=== PATIENT | male | born 1945 | race Caucasian/White ===

== ENCOUNTER 2022-05-16 18:09 | Outpatient (REF) | payer MEDICARE, SELFPAY ==
[2022-05-16 19:05] LABS: Influenza A PCR NEGATIVE (Negative); Influenza B PCR NEGATIVE (Negative); Resp Syncy Virus RNA Qual PCR NEGATIVE (Negative); SARS COV2 PCR INHOUSE NEGATIVE (Negative)
== END 2022-05-16 18:10 | disposition home or self-care (01) ==
LOC: HO.LNP 18:09
PROVIDERS: Visit Provider Internal Medicine
DX: Z20.822 Contact with and (suspected) exposure to COVID-19 (principal)
CPT/HCPCS: 0241U

== ENCOUNTER 2023-08-10 10:50 | Outpatient (AMB) | payer MEDICARE, SELFPAY ==
[2023-08-10 10:57] VITALS: BP 140/64; PULSE 72; O2SAT 96; BMI 36.2
--- NOTE | 2023-08-10 10:57 | MHC.OFFVIS ---
Intake Vital Signs 08/10/23 10:57 Height 5 ft 6 in Weight 224 lb BMI 36.2 BP 140/64 H Blood Pressure Location Lt brachial Position Sitting Pulse 72 Pulse Source Pulse Oximeter Pulse Oximetry (%) 96 Intake Visit Reasons: shortness of breath Assistant Professor Of Economics Required: No Stitch Welder: Stitch Welder offered & declined Allergies No Known Allergies Allergy (Verified 08/10/23 11:01) Medication List - Last Reconciled 08/10/23 by Hilary Grant LPN ON LICENSE OF [facility] Social History (Updated 08/10/23 @ 11:04 by Hilary Grant LPN) Patient Tobacco Use Status: Never used Tobacco Coding
--- NOTE | 2023-08-10 11:09 | MHC.OFFVIS ---
Intake Vital Signs 08/10/23 10:57 Height 5 ft 6 in Weight 224 lb BMI 36.2 BP 140/64 H Blood Pressure Location Lt brachial Position Sitting Pulse 72 Pulse Source Pulse Oximeter Pulse Oximetry (%) 96 Intake Visit Reasons: shortness of breath Family Helper Required: No Bow Making Machine Operator: Bow Making Machine Operator offered & declined Accompanied by: Self / Same As Patient Allergies No Known Allergies Allergy (Verified 08/10/23 11:01) Medication List - Last Reconciled 08/10/23 by Hilary Grant LPN amlodipine 10 mg PO DAILY carvedilol 12.5 mg PO BID doxazosin 4 mg PO DAILY hydralazine 50 mg PO BID metformin 1,000 mg PO DAILY valsartan-hydrochlorothiazide 320-25 mg 1 tab PO DAILY HPI shortness of breath HPI Details Arie is a pleasant 77 year old male, never smoker, with underlying HTN, DM and 1st degree AV block. He was referred by PCP for pulmonary evaluation for dyspnea. He reports testing positive to COVID 05/14, vaccinated multiple times and did not receive Paxlovid. Since then, he reports slowly resolving symptoms. He feels he is 75% improved. Prior to May, he was walking 5-6 miles per day with no respiratory symptoms and only recently started walking on a daily basis, but fatigues easily. He reports productive cough but attributes it to post nasal drip and uses a nasal spray PRN along with mucinex with good effect. Recent CXR revealed increased interstitial markings with question of fibrosis. He denies prior history of asthma. He denies any GERD symptoms. He reports possible asbestos exposure. He denies any pertinent family history. He reports intermittent BLE edema and denies orthopnea however sleeps on a recliner. FOR[facility]LY [facility], [facility] Social History (Updated 08/10/23 @ 11:04 by Hilary Grant LPN) Patient Tobacco Use Status: Never used Tobacco Smoked in Last 30 Days: No Review of Systems Const Denies chills, Denies excessive sweating, Denies fever(s), Denies headache(s) and Denies night sweats Eyes Denies dry eyes, Denies irritation and Denies itchy eyes ENT Reports Normal hearing present, Denies headache(s), Denies nasal congestion, Denies nasal discharge and Denies sore throat Card Denies chest pain, Denies chest pain at rest, Denies chest pain with activity, Denies claudication, Denies dyspnea on exertion, Denies orthopnea and Denies paroxysmal nocturnal dyspnea Resp Denies chest congestion, Denies excessive phlegm production, Denies pain on inspiration, Denies pain with cough, Denies dyspnea on exertion, Denies stridor and Denies wheezing Musc Denies myalgias Neuro Reports Normal hearing present and Denies headache(s) Endo Denies excessive sweating Marcio/Lymph Denies lymphadenopathy Aller/Immun Denies itchy eyes, Denies seasonal rhinorrhea and Denies wheezing Physical Exam Vital Signs: Last Vital Signs Pulse 72 08/10/23 10:57 BP 140/64 H 08/10/23 10:57 Pulse Ox 96 08/10/23 10:57 BMI result Body Mass Index 36.2 Const General: cooperative, healthy appearing, comfortable, no acute distress, well developed and alert Nutritional Appearance: obese Orientation/consciousness: patient oriented x3 Limitations: no limitations HEENT Head: Yes normal to inspection, Yes normocephalic and Yes atraumatic Ears: hearing grossly normal bilaterally and external ears normal Eyes General: appearance normal, both eyes and all related structures Eyelids: Yes eyelids normal Sclerae: sclerae normal EOM: EOMs intact bilaterally Neck Neck: Yes normal visual inspection and Yes no lymphadenopathy Lymphatic: no lymphadenopathy noted Chest Chest palpation & inspection: normal inspection of the chest Resp Other: inspiratory bibasilar crackles Effort & Inspection: normal respiratory effort, able to speak in complete sentences, no audible wheezes, no stridor, not tachypneic, no tripod positioning and no use of accessory muscles Cardio Jugular venous distension: no JVD Rate: regular rate Rhythm: regular rhythm Skin Other: warm, dry General skin exam: no rashes or lesions noted Neuro General: patient oriented x3 Cranial nerves: Yes Normal hearing present Cognition (Neuro): normal cognition Gait exam (Neuro): Normal gait present Extrem Other: 2+ pitting edema BLE Psych Appearance: grossly normal and well kempt Speech and movement: Normal speech and movement present and Clear speech present Affect: normal affect Attitude: cooperative Thought process: Normal thought process present Thought content: Normal thought content present Insight: Good insight present (Psych) Judgement: Good judgement present (Psych) Assessment & Plan Assessment & Plan (1) Dyspnea: Code(s): R06.00 - Dyspnea, unspecified (2) Cough: Code(s): R05.9 - Cough, unspecified (3) Abnormal chest xray: Code(s): R93.89 - Abnormal findings on diagnostic imaging of other specified body structures Plan Arie presents with slowly improving symptoms of dyspnea and cough since testing positive to COVID in May. He had a CXR within the last few weeks that questioned possible pulmonary fibrosis, with bibasilar crackles appreciated on exam. Will send for chest CT to further evaluate. Will also send for PFT to assess for any obstructive or restrictive defect contributing to dyspnea. He reports BLE, 2+ pitting edema BLE on exam, denies orthopnea and PND, will consider echo in the future. All questions were answered and patient is in agreement of plan. Will follow up to review results. Orders: Orders CT chest wo IV con Today R93.89 - Abnormal findings on diagnostic imaging of other specified body structures PFT pulmonary function test Today R05.9 - Cough, unspecified, R06.00 - Dyspnea, unspecified Coding Level of Care Code New Pt Level 4 (16872) Diagnoses Dyspnea R06.00 Cough R05.9 Abnormal chest xray R93.89
== END 2023-08-10 11:34 | disposition home or self-care (01) ==
PROVIDERS: PCP Nurse Practitioner Primary Care; Referring Provider Nurse Practitioner Primary Care; Visit Provider Nurse Practitioner Family
DX: R06.00 Dyspnea, unspecified (principal); R05.9 Cough, unspecified; R93.89 Abnormal findings on diagnostic imaging of other specified body structures
CPT/HCPCS: 99204

== ENCOUNTER → 2023-08-10 10:50 | Outpatient (BNVA) | payer MEDICARE, SELFPAY | PROVIDERS: PCP Nurse Practitioner Primary Care; Referring Provider Nurse Practitioner Primary Care; Visit Provider Nurse Practitioner Family | DX: R06.00 Dyspnea, unspecified (principal); R05.9 Cough, unspecified; R93.89 Abnormal findings on diagnostic imaging of other specified body structures | CPT/HCPCS: 99202 ==

== ENCOUNTER 2023-09-28 12:38 | Outpatient (REF) | payer MEDICARE, SELFPAY ==
--- NOTE | ~2023-09-28 | CT_ITS ---
EXAMINATION: CT CHEST WITHOUT CONTRAST CLINICAL INFORMATION: Questionable pulmonary fibrosis bibasilar crackles COMPARISON: None available. TECHNIQUE: Multidetector volumetric CT imaging of the chest was done. Axial MIP volume rendering provided. Sagittal and coronal reformatted images were obtained. This CT examination was performed using dose optimization techniques as appropriate, variously including the following: *Automated exposure control *Adjustment of mA and/or kV according to patient size (this includes techniques or standardized protocols for targeted exams where dose is matched to indication/reason for exam; i.e. extremities or head) *Use of iterative reconstruction technique DLP: 243 mGy-cm FINDINGS: SUPERVISOR STENO POOL: Unremarkable LUNGS: The lungs are clear with no evidence of inflammation or nodules. MEDIASTINUM: There is mild mediastinal lymphadenopathy with precarinal pretracheal lymph nodes measured 1.6 cm. There is no hilar lymphadenopathy. Aorta is not dilated. There is no pericardial effusion. CORONARY ARTERY CALCIFICATION: Heavily calcified coronary artery present. PLEURA: There is no pleural effusion. No pleural mass or thickening. AXILLA: No lymphadenopathy. UPPER ABDOMEN: There is questionable low-attenuation mass in the left lobe of the liver, correlate with IV enhanced CT scan, or ultrasound. This area measured 8.5 x 5.4 cm spleen is unremarkable. There is no pancreatic lesions. Calcifications seen in the lateral limb of left adrenal gland. OSSEOUS STRUCTURES: Unremarkable. CT/CT chest wo IV con IMPRESSION: 1. No evidence of pulmonary fibrosis. 2. Mild mediastinal lymphadenopathy. 3. Questionable mass in the left lobe of the liver, correlate with IV enhanced CT scan or ultrasound. 4. Calcifications in the left adrenal gland. Fleischner guidelines were followed.
== END 2023-09-28 12:39 | disposition home or self-care (01) ==
LOC: HO.CT 12:38
PROVIDERS: PCP Nurse Practitioner Primary Care; Visit Provider Nurse Practitioner Family
DX: R93.89 Abnormal findings on diagnostic imaging of other specified body structures (principal)
CPT/HCPCS: 71250

== ENCOUNTER 2023-10-02 09:38 | Outpatient (REF) | payer MEDICARE, SELFPAY ==
[2023-10-02 09:44] VITALS: PULSE 62; RESP 16; O2SAT 98
--- NOTE | 2023-10-02 11:00 | PFT_ITS ---
Flows: FEV1: 96 % of predicted at 2.50 L FVC: 93 % of predicted at 3.21 L FEV1/FVC: 78 % Bronchodilator response: Absent Volumes: Lung volumes testing was not performed. Diffusion capacity: Normal Impression: Normal spirometry and diffusion capacity. MTDD
== END 2023-10-02 09:39 | disposition home or self-care (01) ==
LOC: HO.RESP 09:38
PROVIDERS: PCP Nurse Practitioner Primary Care; Visit Provider Nurse Practitioner Family
DX: R05.9 Cough, unspecified (principal); R06.00 Dyspnea, unspecified
CPT/HCPCS: 94010; 94640; 94727; 94729

== ENCOUNTER → 2023-10-02 11:00 | Outpatient (BNV) | payer MEDICARE, SELFPAY | PROVIDERS: PCP Nurse Practitioner Primary Care; Visit Provider Internal Medicine Pulmonary Disease | DX: R05.9 Cough, unspecified (principal); R06.00 Dyspnea, unspecified | CPT/HCPCS: 94060; 94727; 94729 ==

== ENCOUNTER 2023-11-15 08:56 | Outpatient (REF) | payer MEDICARE, SELFPAY ==
--- NOTE | ~2023-11-15 | US_ITS ---
EXAMINATION: US ABDOMEN COMPLETE CLINICAL INFORMATION: Follow-up low attenuation mass within the left hepatic lobe. COMPARISON: None available. TECHNIQUE: Real-time imaging of the abdominal viscera. FINDINGS: PANCREAS: Limited. The visualized pancreatic head and body are normal in appearance. The remainder of the pancreas is obscured from visualization by the overlying bowel gas. ABDOMINAL AORTA: The proximal, mid, and distal segments are normal in caliber. There are atherosclerotic calcifications. INFERIOR VENA CAVA: Visualized portions are normal. LIVER: Within the right hepatic lobe, 3.0 x 2.3 x 2.8 cm and 3.6 x 2.5 x 2.8 cm heterogeneous echotexture, circumscribed masses are seen. Within the left hepatic lobe, 5.7 x 5.1 x 4.1 cm and 2.5 x 1.5 x 2.5 cm heterogeneous echotexture, circumscribed masses are seen. These no significant associated color Doppler flow. The liver is normal in size. The liver contour is lobulated. Parenchymal echogenicity is normal. There is no intrahepatic biliary duct dilatation seen. GALLBLADDER: Normal. The gallbladder is physiologically distended without evidence of stones, sludge, polyps, wall thickening or pericholecystic fluid. COMMON BILE DUCT: Normal in caliber measuring 0.4 cm in diameter. RIGHT KIDNEY: At the lower pole, 1.2 cm and 0.8 cm benign, simple cysts are seen, for which no imaging follow-up is recommended. No hydronephrosis. No renal calculi or focal parenchymal lesions. The kidney measures 11.7 cm in maximum dimension. LEFT KIDNEY: There is pelviectasis, without katarina hydronephrosis. No renal calculi or focal parenchymal lesions. The kidney measures 13.2 cm in maximum dimension. SPLEEN: Normal. The spleen measures 11.0 cm in maximum dimension. FREE FLUID: None. US/US abdomen complete IMPRESSION: 1. There are multiple heterogeneous attenuation hepatic solid masses. These are indeterminate and could be more fully evaluated with MRI (abdominal mass protocol, contrast-enhanced), if clinically indicated. 2. Technically limited ultrasound examination of the pancreas.
== END 2023-11-15 08:57 | disposition home or self-care (01) ==
LOC: HO.US 08:56
PROVIDERS: PCP Nurse Practitioner Primary Care; Visit Provider Nurse Practitioner Primary Care
DX: D13.4 Benign neoplasm of liver (principal)
CPT/HCPCS: 76700

== ENCOUNTER 2023-11-26 12:33 | Outpatient (AMB) | payer MEDICARE, SELFPAY ==
--- NOTE | 2023-11-26 13:04 | A.OFFVIS_ITS ---
Vital Signs 11/26/23 13:05 Height 5 ft 6 in Weight 194 lb BMI 31.3 BP 138/74 Blood Pressure Location Rt brachial Position Sitting Pulse 60 Pulse Source Pulse Oximeter Pulse Oximetry (%) 95 Oxygen Delivery Method Room Air Intake Visit Reasons: ENP-S/P Concussion-CONF Intake Note: Patient presents for concussion. patient had a fall in May due to icy weather he was taken by ambulance to [facility] states he has no symptoms . Allergies No Known Allergies Allergy (Verified 11/26/23 13:10) Medication List - Last Reconciled 11/26/23 by JEAN Perez amlodipine 10 mg PO DAILY carvedilol 12.5 mg PO BID doxazosin 4 mg PO DAILY hydralazine 50 mg PO BID metformin 1,000 mg PO DAILY valsartan-hydrochlorothiazide 320-25 mg 1 tab PO DAILY HPI Comments Details: 78-yr-old male w/ PMH HTN, diabetes, and COVID-19 (May 2023) presents for new pt neuro evaluation following a mechanical slip and fall on ice on 06/04/23. Pt did strike his head, has approx 30 seconds of LOC. Was brought to [facility] via ambulance. Head CT showed several foci of mild subarachnoid hemorrhage seen al cameron the falx. Possible small focus of intraventricular hemorrhage in the fourth ventricle. He was monitored at [facility]- remained neurologically intact and discharged home. Pt states he had a headache for just a couple of days, which self-resolved. He denies any residual dizziness, headache, cognitive changes, sleep difficulties. His only current compliant is that he believes he recently pulled his Right upper/thigh groin region- not sure how but was helping a friend do some physical work finding a well. This has been making it harder for him to do his usual 4+ mile walk per day in the last couple of days- though he was able to walk approx 2 miles today (pt shares his phone's activity log). He has been resting, using Ibuprofen prn and applying Ice which has been helpful. 06/04/23, RESULT: CT Head/Brain W/O Contrast CT Head/Brain W/O Contrast, CT Cervical Spine W/O Contrast Hx of Present Illness: patient does not remember events. does remember getting ready to leave house, then being in ambulance. thinks he fell because the back of his head hurts. C-collar by EMS; Reason: Trauma; Clinical Question(s): Hematoma COMPARISON: None. TECHNIQUE: Incremental CT without contrast through the head was formatted in axial and coronal plane. Spiral CT without contrast through the cervical spine was formatted in 3 planes. Automatic tube modulation was used for the cervical spine and iterative dose reconstruction was used for both the head and cervical spine to optimize scan parameters and image quality. CTDIvol Body: 20.55 mGy, DLP Body: 461 mGy*cm. CTDIvol Head: 42.62 mGy, DLP Head: 767 mGy*cm. FINDINGS: Aviation Technical Systems Specialist View Findings, Lines and Tubes: None. CT of HEAD: BRAIN: High density material seen adjacent to the falx at the apex consistent with mild subarachnoid hemorrhage. Possible small focus of hemorrhage also noted in the fourth ventricle area. No white matter lesions. VENTRICLES: Ventricles, sulci, and basilar cisterns are normal. EXTRA-AXIAL SPACES: No subarachnoid hemorrhage. No subdural or epidural collection. SKULL/SOFT TISSUES: No fractures or suspicious bony lesions. The extracranial soft tissues are unremarkable. SINUSES: The paranasal sinuses and mastoid air cells are clear. ORBITS: Visualized orbits and globes are intact. CT of CERVICAL SPINE: CERVICAL SPINE: No fracture or acute malalignment. Normal alignment. No locked or perched facet. Intervertebral discs are normal. OTHER BONES: Normal. CERVICAL SOFT TISSUES:3 cm left thyroid nodule. Follow-up with ultrasound could be considered. LUNG APICES: Clear lung apices. IMPRESSION: Several foci of mild subarachnoid hemorrhage seen along the falx. Possible small focus of intraventricular hemorrhage in the fourth ventricle. No other acute abnormality. Indeterminate left lobe thyroid nodule. Follow-up ultrasound as outpatient could be considered PFSH Family History (Updated 11/26/23 @ 13:11 by RADHA Dawson) Father Afib Social History (Updated 11/26/23 @ 13:11 by RADHA Dawson) Alcohol intake: never Patient Tobacco Use Status: Never used Tobacco Physical Exam Vital Signs: Last Vital Signs Pulse 60 11/26/23 13:05 BP 138/74 11/26/23 13:05 Pulse Ox 95 11/26/23 13:05 Oxygen Delivery Method Room Air 11/26/23 13:05 BMI result Body Mass Index 31.3 Const Orientation/consciousness: patient oriented x3 Resp Effort & Inspection: normal respiratory effort and able to speak in complete sentences Neuro General: patient oriented x3 Cranial nerves: Yes CN's II-XII intact bilaterally Cognition (Neuro): normal cognition Gait exam (Neuro): Normal gait present Motor exam (neuro): 5/5 motor strength present throughout Deep tendon reflexes (DTR's): Right triceps reflex intensity grade: 2+, Left triceps reflex intensity grade: 2+, Rt Biceps (C5, C6): 2+, Left biceps reflex intensity grade: 2+, Right brachioradialis reflex intensity grade: 2+, Left brachioradialis reflex intensity grade: 2+, Right patellar reflex intensity grade: 2+ and Left patellar reflex intensity grade: 2+ Coordination: [id number] test normal and Romberg test negative Pupils: Normal pupillary reactivity/response: bilateral Psych Appearance: grossly normal Mental Status: mental status grossly normal Speech and movement: Normal speech and movement present Affect: normal affect Attitude: cooperative Thought process: Normal thought process present Assessment & Plan Assessment & Plan (1) Subarachnoid hemorrhage: Code(s): I60.9 - Nontraumatic subarachnoid hemorrhage, unspecified Category: Medical (2) Head injury with loss of consciousness: Comment: d/t mechanical fall (May 2023). Code(s): S06.9X9A - Unspecified intracranial injury with loss of consciousness of unspecified duration, initial encounter Category: Medical Plan Reviewed pt's history, [facility] notes, Head CT. Pt denies any concussion s/s. Pt advsied to undergo f/u brain MRI w/wo to assess status of several foci of mild subarachnoid hemorrhage seen along the falx and possible small focus of intraventricular hemorrhage in the fourth ventricle, as well as to assess for any indications of cerebral amyloid angiopathy as head CT showed multiple areas of microhemorrhage. For right groin pain- Rest, Ice, Ibuprofen 400-600mg q 4-6 hrs prn. Advised to f/u w/ PCP if s/s persist or worsen. Case discussed w/ Dr Anny Thrasher. Orders: Orders MR head/brain wo/w con Today I62.9 - Nontraumatic intracranial hemorrhage, unspecified Coding Level of Care Code New Pt Level 4 (56976) Diagnoses Subarachnoid hemorrhage I60.9 Head injury with loss of consciousness S06.9X9A
[2023-11-26 13:05] VITALS: BP 138/74; PULSE 60; O2SAT 95; BMI 31.3
== END 2023-11-26 13:45 | disposition home or self-care (01) ==
PROVIDERS: PCP Nurse Practitioner Primary Care; Visit Provider Nurse Practitioner Family
DX: S06.6X1A Traumatic subarachnoid hemorrhage with loss of consciousness of 30 minutes or less, initial encounter (principal); W00.0XXA Fall on same level due to ice and snow, initial encounter; R93.0 Abnormal findings on diagnostic imaging of skull and head, not elsewhere classified
CPT/HCPCS: 99204; 99214

== ENCOUNTER → 2023-11-26 12:33 | Outpatient (BNVA) | payer MEDICARE, SELFPAY | PROVIDERS: PCP Nurse Practitioner Primary Care; Visit Provider Nurse Practitioner Family | DX: S06.9X9A Unspecified intracranial injury with loss of consciousness of unspecified duration, initial encounter (principal); I60.9 Nontraumatic subarachnoid hemorrhage, unspecified | CPT/HCPCS: 99202 ==

== ENCOUNTER 2023-12-05 09:17 | Outpatient (AMB) | payer MEDICARE, SELFPAY ==
[2023-12-05 09:23] VITALS: BP 130/62; PULSE 58; O2SAT 96; BMI 32.2
--- NOTE | 2023-12-05 09:23 | A.OFFVIS_ITS ---
Vital Signs 12/05/23 09:23 Height 5 ft 6 in Weight 199 lb 6 oz BMI 32.2 BP 130/62 Blood Pressure Location Rt brachial Position Sitting Pulse 58 Pulse Source Pulse Oximeter Pulse Oximetry (%) 96 Oxygen Delivery Method Room Air Intake Visit Reasons: Shortness of breath Allergies No Known Allergies Allergy (Verified 12/05/23 09:25) HPI HPI Shortness of breath: Details: Arie is a pleasant 78 year old male, never smoker, with underlying HTN, DM and 1st degree AV block. He was initially referred by PCP for persistent dyspnea after having COVID in May. Prior CXR revealed increased interstitial markings with question of fibrosis and was sent for Chest CT. Today he presents to review chest CT and PFT. Denies any recent urgent care visits or hospitalizations since the last visit. He reports respiratory symptoms have completely resolved since last visit. PFSH Family History (Updated 11/26/23 @ 13:11 by RADHA Dawson) Father Afib Social History Alcohol intake: never Patient Tobacco Use Status: Never used Tobacco Review of Systems Const Denies chills, Denies excessive sweating, Denies fever(s), Denies headache(s) and Denies night sweats Eyes Denies dry eyes, Denies irritation and Denies itchy eyes ENT Reports Normal hearing present, Denies headache(s), Denies nasal congestion, Denies nasal discharge, Denies post nasal drip and Denies sore throat Card Denies chest pain, Denies chest pain at rest, Denies chest pain with activity, Denies claudication, Denies leg edema, Denies dyspnea, Denies dyspnea on exertion, Denies orthopnea and Denies paroxysmal nocturnal dyspnea Resp Denies chest congestion, Denies cough, Denies excessive phlegm production, Denies pain on inspiration, Denies pain with cough, Denies dyspnea, Denies dyspnea on exertion, Denies stridor and Denies wheezing Musc Denies myalgias Neuro Reports Normal hearing present and Denies headache(s) Endo Denies excessive sweating Marcio/Lymph Denies lymphadenopathy Aller/Immun Denies itchy eyes, Denies seasonal rhinorrhea and Denies wheezing Physical Exam Vital Signs: Last Vital Signs Pulse 58 12/05/23 09:23 BP 130/62 12/05/23 09:23 Pulse Ox 96 12/05/23 09:23 Oxygen Delivery Method Room Air 12/05/23 09:23 BMI result Body Mass Index 32.2 Const General: cooperative, healthy appearing, comfortable, no acute distress, well developed and alert Nutritional Appearance: obese Orientation/consciousness: patient oriented x3 Limitations: no limitations HEENT Head: Yes normal to inspection, Yes normocephalic and Yes atraumatic Ears: hearing grossly normal bilaterally and external ears normal Eyes General: appearance normal, both eyes and all related structures Eyelids: Yes eyelids normal Sclerae: sclerae normal EOM: EOMs intact bilaterally Neck Neck: Yes normal visual inspection and Yes no lymphadenopathy Lymphatic: no lymphadenopathy noted Chest Chest palpation & inspection: normal inspection of the chest Resp Effort & Inspection: normal respiratory effort, able to speak in complete sentences, no audible wheezes, no cough, no stridor, not tachypneic, no tripod positioning and no use of accessory muscles Auscultation: clear to auscultation bilaterally Cardio Jugular venous distension: no JVD Rate: regular rate Rhythm: regular rhythm Skin Other: warm, dry General skin exam: no rashes or lesions noted Neuro General: patient oriented x3 Cranial nerves: Yes Normal hearing present Cognition (Neuro): normal cognition Gait exam (Neuro): Normal gait present Extrem General: Yes normal to inspection, Yes capillary refill normal, Yes no clubbing, cyanosis or edema and Yes no pedal edema Psych Appearance: grossly normal and well kempt Speech and movement: Normal speech and movement present and Clear speech present Affect: normal affect Attitude: cooperative Thought process: Normal thought process present Thought content: Normal thought content present Insight: Good insight present (Psych) Judgement: Good judgement present (Psych) Results Reviewed Results Reviewed: [address] [address] [address] Scan Report Signed Patient: Arie Snell MR#: [id number] : 1945 Acct:[id number] Age/Sex: 77 / M ADM Date: 09/28/23 Loc: HO.CT Attending Dr: Aspen Hilario EMERGENCY ROOM TECHNICIAN Ordering Physician: Aspen Hilario NP Date of Service: 09/28/23 Procedure(s): CT chest wo IV con Accession Number(s): [id number] cc: Aspen Hilario EMERGENCY ROOM TECHNICIAN; Janki Lamar DIRECTOR [employer]~ EXAMINATION: CT CHEST WITHOUT CONTRAST CLINICAL INFORMATION: Questionable pulmonary fibrosis bibasilar crackles COMPARISON: None available. TECHNIQUE: Multidetector volumetric CT imaging of the chest was done. Axial MIP volume rendering provided. Sagittal and coronal reformatted images were obtained. This CT examination was performed using dose optimization techniques as appropriate, variously including the following: *Automated exposure control *Adjustment of mA and/or kV according to patient size (this includes techniques or standardized protocols for targeted exams where dose is matched to indication/reason for exam; i.e. extremities or head) *Use of iterative reconstruction technique DLP: 243 mGy-cm FINDINGS: HVAC SERVICE TECHNICIAN: Unremarkable LUNGS: The lungs are clear with no evidence of inflammation or nodules. MEDIASTINUM: There is mild mediastinal lymphadenopathy with precarinal pretracheal lymph nodes measured 1.6 cm. There is no hilar lymphadenopathy. Aorta is not dilated. There is no pericardial effusion. CORONARY ARTERY CALCIFICATION: Heavily calcified coronary artery present. PLEURA: There is no pleural effusion. No pleural mass or thickening. AXILLA: No lymphadenopathy. UPPER ABDOMEN: There is questionable low-attenuation mass in the left lobe of the liver, correlate with IV enhanced CT scan, or ultrasound. This area measured 8.5 x 5.4 cm spleen is unremarkable. There is no pancreatic lesions. Calcifications seen in the lateral limb of left adrenal gland. OSSEOUS STRUCTURES: Unremarkable. CT/CT chest wo IV con IMPRESSION: 1. No evidence of pulmonary fibrosis. 2. Mild mediastinal lymphadenopathy. 3. Questionable mass in the left lobe of the liver, correlate with IV enhanced CT scan or ultrasound. 4. Calcifications in the left adrenal gland. Fleischner guidelines were followed. Dictated By: Raymon Collado MD Signed By: <Electronically signed by Raymon Collado MD in OV> 11/06/23 1638 DD/ 1327 TD/TT: Industrial Economist: Assessment & Plan Assessment & Plan (1) Mediastinal lymphadenopathy: Code(s): R59.0 - Localized enlarged lymph nodes Category: Medical (2) Dyspnea: Code(s): R06.00 - Dyspnea, unspecified Category: Medical (3) Cough: Code(s): R05.9 - Cough, unspecified Category: Medical Plan Arie reports complete resolution of respiratory symptoms since last visit. He has been quite active walking upwards of 6-7 miles per day without symptoms. R azizaiewed chest CT from 09/2023 which did not reveal any signs of pulmonary fibrosis however did note mildly enlarged mediastinal lymphnodes, 1.6mm. Will send for repeat chest CT with contrast in 6 months. There was question of abnormal liver findings, which PCP aware and will be following up on. We did discuss the finding of heavily calcified coronary arteries however he would like to follow up with PCP. PFT normal spirometry with normal DLCO, unable to perform lung volumes due to equipment. He is aware if respiratory symptoms return to call office. All questions were answered and patient is in agreement of plan. Will follow up to review CT chest results or sooner if needed. Orders: Orders CT chest w IV con 4 Months R59.0 - Localized enlarged lymph nodes Blood Urea Nitrogen Today Z01.818 - Encounter for other preprocedural examination Creatinine Today Z01.818 - Encounter for other preprocedural examination Coding Level of Care Code Est Pt Level 4 (64675) Diagnoses Mediastinal lymphadenopathy R59.0 Dyspnea R06.00 Cough R05.9
== END 2023-12-05 10:09 | disposition home or self-care (01) ==
PROVIDERS: PCP Nurse Practitioner Primary Care; Visit Provider Nurse Practitioner Family
DX: R59.0 Localized enlarged lymph nodes (principal); R06.00 Dyspnea, unspecified; R05.9 Cough, unspecified
CPT/HCPCS: 99214

== ENCOUNTER → 2023-12-05 09:17 | Outpatient (BNVA) | payer MEDICARE, SELFPAY | PROVIDERS: PCP Nurse Practitioner Primary Care; Visit Provider Nurse Practitioner Family | DX: R59.0 Localized enlarged lymph nodes (principal); R06.00 Dyspnea, unspecified; R05.9 Cough, unspecified | CPT/HCPCS: 99212 ==

== ENCOUNTER 2024-01-03 16:22 | Outpatient (REF) | payer MEDICARE, SELFPAY ==
--- NOTE | ~2024-01-03 | MR_ITS ---
EXAMINATION: MR BRAIN WITHOUT AND WITH CONTRAST CLINICAL INFORMATION: Nontraumatic intracranial hemorrhage, unspecified COMPARISON: None TECHNIQUE: Multiplanar multisequence MR imaging of the brain was obtained without and following the administration of 10 mL Gadavist intravenous contrast. FINDINGS: There is no acute infarct on diffusion-weighted imaging. Susceptibility artifact along the paramedian right frontoparietal junction, possibly representing hemosiderin staining. Punctate focus of microhemorrhage in the right periatrial white matter. No extra-axial collection or mass effect/herniation. Patchy periventricular and deep white matter T2 FLAIR hyperintensities consistent with moderate underlying microangiopathy. No hydrocephalus. There is a degree of generalized cerebral volume loss with prominence of both the ventricles and sulcal spaces. However, there appears to be disproportionate prominence of the ventricles with sulcal crowding near the vertex, a radiographic finding which can be seen in the setting of communicating/normal pressure hydrocephalus.. No abnormal parenchymal or extra-axial enhancement. The major flow voids at the skull base are preserved. There is upward displacement and diffuse thinning of the corpus callosum The cerebellar tonsils are normally positioned. The craniocervical junction is normal. Marrow signal is within normal limits. The visualized soft tissues are without significant abnormality. Complete opacification of the left frontal sinus and mild anterior ethmoid sinus mucosal thickening, left greater than right. Left maxillary sinus retention cyst. MR/MR head/brain wo/w con IMPRESSION: 1. There is susceptibility artifact along the paramedian aspect of the right frontoparietal junction, most likely reflecting pial hemosiderin staining in the setting of prior subarachnoid hemorrhage. Vascular abnormality in this region is not excluded on the basis of this examination and would be better assessed with CTA 2. Moderate chronic microangiopathy. 3. Generalized cerebral volume loss with disproportionate prominence of the ventricles and sulcal crowding near the vertex, a radiographic finding which can be seen in the setting of communicating/normal pressure hydrocephalus. 4. Paranasal sinus inflammatory disease including complete opacification of the left frontal sinus. Electronically signed by: Bruno Ramirez MD 01/22/2024 03:03 PM EDT
[2024-01-03] MEDS: gadobutroL 10 ML VIAL IVPUSH (18:36)
== END 2024-01-03 16:23 | disposition home or self-care (01) ==
LOC: HO.MRI 16:22
PROVIDERS: PCP Nurse Practitioner Primary Care; Visit Provider Nurse Practitioner Family
DX: I62.9 Nontraumatic intracranial hemorrhage, unspecified (principal)
CPT/HCPCS: 70553; A9585

== ENCOUNTER 2024-01-15 08:59 | Outpatient (REF) | payer MEDICARE, SELFPAY ==
--- NOTE | ~2024-01-15 | CT_ITS ---
EXAMINATION: CT CHEST WITH CONTRAST CLINICAL INFORMATION: Localized enlarged lymph nodes. Hepatic lesions.. COMPARISON: CT dated September 28, 2023. TECHNIQUE: Multidetector volumetric CT imaging of the chest was obtained after the administration of 85 mL of Omnipaque 350 intravenous contrast without immediate adverse reactions. Axial MIP volume rendering provided. Sagittal and coronal reformatted images were obtained. This CT examination was performed using dose optimization techniques as appropriate, variously including the following: *Automated exposure control *Adjustment of mA and/or kV according to patient size (this includes techniques or standardized protocols for targeted exams where dose is matched to indication/reason for exam; i.e. extremities or head) *Use of iterative reconstruction technique DLP: 134 mGy-cm FINDINGS: . Submitted for interpretation on March 28, 2024. There is a 4 mm noncalcified pulmonary nodule in the right middle lobe. No bronchiectasis. No honeycombing. No pleural effusion. No pneumothorax. 1.3 cm right pretracheal lymph node. No pericardial effusion. No aneurysm or dissection, thoracic aorta. Calcified plaques in the coronary arteries. 3.3 cm peripheral enhancing low density dominant nodule in the left thyroid lobe extending into the anterior superior mediastinum. Multilevel thoracic and upper lumbar spondylosis. No new no fractures and and the lateral aspect of the right eighth rib. No lytic or blastic lesions. S-shaped curvature of the thoracic spine. Heterogeneously enhancing exophytic lesion seen in the left hepatic lobe. CT/CT chest w IV con IMPRESSION: 4 mm noncalcified pulmonary nodule, right middle lung lobe. Consider inflammatory versus infectious versus neoplasm. 3.3 cm dominant heterogeneous nodule left thyroid lobe. Hepatic lesions. Please refer to the CT abdomen and pelvis Coronary artery disease.. Fleischner guidelines were followed. Electronically signed by: David Bangura MD 03/28/2024 02:20 PM [facility] [place]
--- NOTE | ~2024-01-15 | CT_ITS ---
EXAMINATION: CT ABDOMEN WITH CONTRAST CLINICAL INFORMATION: Liver mass. COMPARISON: [facility]. Correlated to ultrasound dated November 15, 2023. TECHNIQUE: Contiguous axial thin section helical images of the abdomen were performed following the administration of oral contrast and 85 mL of Omnipaque 350 intravenous contrast without reported immediate complications. The data set was reformatted in the coronal and sagittal planes and reviewed on an independent workstation. This CT examination was performed using dose optimization techniques as appropriate, variously including the following: *Automated exposure control *Adjustment of mA and/or kV according to patient size (this includes techniques or standardized protocols for targeted exams where dose is matched to indication/reason for exam; i.e. extremities or head) *Use of iterative reconstruction technique DLP: 324 mGy-cm FINDINGS: Limited for interpretation on March 21, 2024. LIVER, GALLBLADDER, AND BILIARY TREE: There multiple, multifocal, randomly distributed, different sizes, hypodense and some with heterogeneous enhancing liver lesions, the largest in the dome of the left hepatic lobe measures 5 cm and an exophytic lesion in the dome left hepatic lobe measures 3 cm. There is a cluster of multiple heterogeneous enhancing hypodense lesions in the left hepatic lobe with a more hypodense abnormality this lesion extends and or infiltrates in the left hepatic vein. The middle and right hepatic veins are patent. The main portal vein and its main left and right branches are patent. No gross intrahepatic biliary ductal dilatation. Gallbladder is fluid-filled. No pericholecystic fluid collection or gallbladder wall thickening. Common bile duct measures 4 mm. Pancreas demonstrates decreased enhancement pattern and volume loss without focal enhancing mass. No main pancreatic ductal dilatation. Spleen measures 10 cm. No focal mass. No nodular lesions in the adrenal glands. No renal mass. No hydronephrosis. Subcentimeter cyst in the lower pole right kidney. The intrahepatic portion of the IVC is patent. There are mixed plaques throughout the abdominal aorta wall and iliac arteries without aneurysm or dissection. There are multiple prominent less than 12 mm lymph nodes in the retroperitoneum. There is a 12 mm nodule within the posterior right lateral aspect of the lower right hepatic lobe probably in the peritoneal cavity. Gas and fluid-filled mildly prominent small bowel loops. Abundant stool within the left hemicolon. Numerous diverticula in the sigmoid colon. No intestinal obstruction pattern. No pneumatosis intestinalis. I do not see the appendix. No ascites. No pneumoperitoneum 4 mm pulmonary nodule, right middle lobe. Multilevel thoracolumbar spondylosis. No acute fracture. Grade 1 retrolisthesis L2-3 likely degenerative. Old wedge-shaped compression deformity representing 20% volume loss at T10 and T9 vertebral bodies. No lytic or blastic lesions.. Small fat-containing umbilical hernia. . 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 Questionable tumor infiltration into left hepatic vein. Fleischner guidelines were followed. Electronically signed by: David Bangura MD 03/21/2024 12:17 PM [facility]
[2024-01-15] MEDS: Barium Sulfate Oral (Vanilla) 450 ML ORAL.SUSP PO (12:24)
[2024-01-15] MEDS: iohexoL 350 MG/ML 100 ML INFUS..BTL 85 ML IV (12:24)
[2024-01-16 14:04] LABS: GFR POC > 60
== END 2024-01-15 09:00 | disposition home or self-care (01) ==
LOC: HO.CT 08:59
PROVIDERS: PCP Nurse Practitioner Primary Care; Visit Provider Nurse Practitioner Primary Care
DX: R59.0 Localized enlarged lymph nodes (principal); R16.0 Hepatomegaly, not elsewhere classified
CPT/HCPCS: 71260; 74160; 82565; Q9967

== ENCOUNTER → 2024-01-15 09:05 | Outpatient (BNV) | payer MEDICARE, SELFPAY | PROVIDERS: PCP Nurse Practitioner Primary Care; Visit Provider Radiology Diagnostic Radiology | DX: R59.0 Localized enlarged lymph nodes (principal) | CPT/HCPCS: 71260; 74160 ==

== ENCOUNTER 2024-03-07 10:03 | Outpatient (REF) | payer MEDICARE, SELFPAY ==
[2024-03-07 11:23] LABS: Anion Gap 13 (12-20); Blood Urea Nitrogen 24 mg/dL (9-16); Calcium 10.1 mg/dL (8.4-10.2); Carbon Dioxide 27 mmol/L (22-29); Chloride 105 mmol/L (96-108); Estimated Glomerular Filt Rate 56; Glucose Random 134 mg/dL (60-115); Potassium 4.7 mmol/L (3.3-5.1); Sodium 140 mmol/L (135-145)
== END 2024-03-07 10:04 | disposition home or self-care (01) ==
LOC: HO.LAB 10:03
PROVIDERS: Nurse Practitioner Family; PCP Nurse Practitioner Primary Care; Visit Provider Nurse Practitioner Primary Care
DX: E11.9 Type 2 diabetes mellitus without complications (principal)
CPT/HCPCS: 36415; 80048

== ENCOUNTER 2024-03-14 11:24 | Outpatient (REF) | payer MEDICARE, SELFPAY ==
--- NOTE | ~2024-03-14 | MR_ITS ---
EXAMINATION: MR ABDOMEN WITHOUT AND WITH CONTRAST CLINICAL INFORMATION: Liver mass on ultrasound COMPARISON: CT chest and abdomen with contrast 01/15/2024. TECHNIQUE: MR abdomen was performed without and with use of 9 mL intravenous Gadavist gadolinium contrast. Postcontrast images are performed in multiphase dynamic sequences. Imaging was performed in 3 planes. FINDINGS: LUNG BASES: No pleural effusions. LIVER, GALLBLADDER, AND BILIARY TREE: Liver demonstrates normal size. There is signal drop on the out of phase images which can be seen with hepatic steatosis. Multiple hepatic mass lesions are noted. The largest lesion/mass is noted in the left hepatic lobe segment 2 and 3 with an exophytic nodular component extending superior to the left hepatic lobe and abutting the diaphragm. The mass demonstrates T1 hypointense and T2 mildly hyperintense signal with restricted diffusion. The mass measures approximately 9.1 x 7.7 cm in the axial plane and up to 5.9 cm in the vertical extent, 13:17 and 20:58. The mass demonstrates peripheral arterial enhancement ,washout on the venous phase with enhancing capsule on the venous and delayed phases. The exophytic nodular component measures 3.5 x 3.1 cm, 13:9. Multiple additional lesions scattered throughout the liver demonstrates T1 hypointense and T2 mildly hyperintense signal with restricted diffusion. These lesions demonstrate homogeneous arterial enhancement , washout on the venous phase with enhancing capsule on the venous and delayed phases. Few reference examples are as follows: 2.9 cm lesion in the right hepatic lobe segment 8, 13:29 2.7 cm lesion in the right hepatic lobe segment 5, 13:40 2.2 cm lesion in the left hepatic lobe segment 3, 13:27 1.5 cm lesion in the right hepatic lobe segment 6, 13:50. The liver is normal in size, smooth in contour, and normal in signal. No focal hepatic lesion or biliary ductal dilatation is present. The gallbladder is unremarkable with no evidence of gallbladder wall thickening, or obvious pericholecystic inflammatory changes. PANCREAS: 1.5 cm T2 hyperintense nonenhancing lesion in the uncinate process of the pancreas, 3:20. No enhancing nodular component. No pancreatic ductal dilation. Probable communication with the main pancreatic duct, 5:21. SPLEEN: Unremarkable. ADRENAL GLANDS: Unremarkable. KIDNEYS : Symmetric nephrograms. Few scattered bilateral simple renal cortical cysts, for which no dedicated follow-up imaging is required. No hydronephrosis. GASTROINTESTINAL TRACT: Stomach and small bowel are nondilated. Sigmoid colonic diverticulosis without features of acute diverticulitis. ABDOMINAL WALL: No significant hernia is appreciated. LYMPH NODES: No lymphadenopathy. VASCULAR: The abdominal aorta is normal in caliber. OSSEOUS STRUCTURES: Degenerative changes of the visualized spine. MR/MR abdomen wo/w con IMPRESSION: 1. Multiple hepatic lesions as detailed with a dominant mass spanning left hepatic lobe segment 2 and 3 with an exophytic nodular component extending superior to the left hepatic lobe . The dominant mass demonstrates restricted diffusion, heterogenous peripheral arterial enhancement, washout on the venous and delayed phases with enhancing capsule. Multiple other lesions also demonstrate similar imaging characteristics. Findings may represent multifocal hepatocellular carcinoma, although metastasis is not excluded. Correlation with tissue sampling is recommended. 2. 1.5 cm cystic lesion in the uncinate process of the pancreas with probable communication with the main pancreatic duct. No dilatation of the main pancreatic duct. No solid component. 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 Follow-up in 2 years is recommended. Electronically signed by: Sergei Chirinos MD 03/14/2024 02:47 PM [facility]
[2024-03-14] MEDS: gadobutroL 10 ML VIAL IVPUSH (12:14)
== END 2024-03-14 11:25 | disposition home or self-care (01) ==
LOC: HO.MRI 11:24
PROVIDERS: PCP Nurse Practitioner Primary Care; Visit Provider Nurse Practitioner Primary Care
DX: R16.0 Hepatomegaly, not elsewhere classified (principal); R93.89 Abnormal findings on diagnostic imaging of other specified body structures
CPT/HCPCS: 74183; A9585

== ENCOUNTER 2024-04-04 08:38 | Outpatient (REF) | payer MEDICARE, SELFPAY ==
--- NOTE | ~2024-04-04 | CT_ITS ---
EXAMINATION: CT ANGIOGRAM HEAD CT ANGIOGRAM NECK CLINICAL INFORMATION: Nontraumatic subarachnoid hemorrhage. COMPARISON: Brain MRI from 01/03/2024. TECHNIQUE: Initial noncontrast side framer imaging of the head and neck was performed. Noncontrast head CT was also performed. Test bolus sequences followed by intravenous administration 85 mL of Omnipaque 350. Helical imaging was performed in the axial plane from the aortic arch to the skull vertex. Delayed postcontrast imaging of the head was also performed. The data was processed at the electroencephalograph technologist's workstation for generation of MIP sequences. Angled MIPs and volume rendered reformatted images were also generated at an offline 3D workstation. Stenoses are assessed in accordance with NASCET criteria unless otherwise indicated. This CT examination was performed using dose optimization techniques as appropriate, variously including the following: *Automated exposure control. *Adjustment of mA and/or kV according to patient size (this includes techniques or standardized protocols for targeted exams where dose is matched to indication/reason for exam; i.e. extremities or head). *Use of iterative reconstruction technique. DLP: 2373 mGy-cm FINDINGS: CT Head: There is no evidence of acute intracranial hemorrhage or edematous territorial infarction. Collins-white matter differentiation is preserved. Scattered and partially confluent hypoattenuation in the periventricular and deep white matter are consistent with moderate microangiopathy. There is a degree of generalized cerebral volume loss with prominence of both the ventricles and sulcal spaces. However, there appears to be mildly disproportionate prominence of the ventricles. The posterior callosal angle is decreased (49 degrees) when measured on a corrected coronal image, orthogonal to the anterior commissure-posterior commissure line. The third ventricle measures up to 1.8 cm in diameter. No abnormal mass effect or midline shift. No extra-axial fluid collections. No pathologic intra-axial enhancement. No acute soft tissue or osseous abnormalities. Near complete opacification of the left frontal sinus. Moderate mucosal thickening of the left maxillary sinus associated with osseous uncovering of vertebral body maxillary left 1st molar. Mild mucosal thickening of the remaining paranasal sinuses. Moderate leftward nasal septal deviation. The mastoid air cells and middle ear cavities are clear. Multifocal odontogenic enamel erosions and periapical lucencies. Bilateral lens extractions. CT Neck: There is a 5.4 cm hypoattenuating lesion in the left thyroid lobe. The remaining cervical soft tissues are within normal limits. Moderate degenerative arthropathy of the atlantodental articulation. Straightening of the normal cervical lordosis. Advanced degenerative disc disease from C5-T1. Moderate degenerative disc disease at all additional levels. Associated disc-osteophyte complex formation. There appears to be at least moderate spinal canal stenoses from C3-T1. Facet and uncovertebral joint arthropathy leads to osseous encroachment on the neural foramina from C3-T1. CT Upper Chest: The visualized lung apices and upper mediastinum are within normal limits. Neck CTA: Aortic Arch: Normal contour and caliber with mild calcific atherosclerotic disease. Classic 3 vessel branching pattern of the aortic arch. Great Vessel Origins: No significant stenosis of the branch origins. Right Common Carotid Artery: No focal stenosis or occlusion. Cervical Right Internal Carotid Artery: Mild calcific atherosclerotic disease of the carotid bulb and proximal internal carotid artery without flow-limiting stenosis. Left Common Carotid Artery: No focal stenosis or occlusion. Cervical Left Internal Carotid Artery: Mild calcific atherosclerotic disease of the carotid bulb and proximal internal carotid artery without flow-limiting stenosis. Cervical Right Vertebral Artery: Co-dominant. No focal stenosis or occlusion. Cervical Left Vertebral Artery: Co-dominant. No focal stenosis or occlusion. Brain CTA: Intracranial Internal Carotid Arteries: Mild calcific atherosclerotic disease of the intracranial internal carotid arteries without occlusion or flow-limiting stenosis. Right Anterior Cerebral Artery: Normal A1 segment. Normal opacification of the distal ANNA segments. Left Anterior Cerebral Artery: Normal A1 segment. Normal opacification of the distal ANNA segments. Anterior Communicating Artery: Normal. Right Middle Cerebral Artery: Normal M1 segment of the MCA without focal stenosis or occlusion. Normal arborization of the distal segments. Left Middle Cerebral Artery: Normal M1 segment of the MCA without focal stenosis or occlusion. Normal arborization of the distal segments. Right Vertebral Artery: Normal V4 segment. Normal opacification of the proximal segments of the posterior inferior cerebellar artery. Left Vertebral Artery: Normal V4 segment. Normal opacification of the proximal segments of the posterior inferior cerebellar artery. Basilar Artery: Normal without focal stenosis or occlusion. Normal appearance of the proximal superior cerebellar arteries. Right Posterior Cerebral Artery: Normal P1 segment. Normal opacification of the distal INK BLENDER segments. Left Posterior Cerebral Artery: Normal P1 segment. Normal opacification of the distal INK BLENDER segments. Normal opacification of the superior sagittal, straight, transverse, and sigmoid sinuses. CT/CT angio head neck IMPRESSION: 1. No evidence of acute intracranial hemorrhage or edematous territorial infarction. 2. CTA of the head and neck without proximal occlusion or flow-limiting stenosis. No demonstrated intracranial aneurysm or vascular malformation. 3. Moderate underlying microangiopathy. There is a degree of generalized cerebral volume loss with prominence of both the ventricles and sulcal spaces. However, there appears to be mildly disproportionate prominence of the ventricles. This may be due to disproportionate central volume loss; however, correlation with symptoms of potential superimposed normal pressure hydrocephalus is recommended. 4. Moderate to advanced multilevel degenerative spondyloarthropathy of the cervical spine. There appears to be at least moderate spinal canal stenoses from C3-T1. 5. There is a 5.4 cm lesion in the left thyroid lobe. Recommend further characterization with thyroid ultrasound. Electronically signed by: Brandt Livingston DO 04/05/2024 01:59 AM [facility]
[2024-04-04] MEDS: iohexoL 350 MG/ML 100 ML INFUS..BTL IV (09:15)
== END 2024-04-04 08:39 | disposition home or self-care (01) ==
LOC: HO.CT 08:38
PROVIDERS: PCP Nurse Practitioner Primary Care; Visit Provider Nurse Practitioner Family
DX: I60.9 Nontraumatic subarachnoid hemorrhage, unspecified (principal)
CPT/HCPCS: 70496; 70498; Q9967

== ENCOUNTER 2024-04-07 08:43 | Day surgery (SDC) | payer MEDICARE, SELFPAY ==
[2024-04-07] VITALS (16 sets, daily range): BP systolic 99–149; BP diastolic 53–69; PULSE 46–55; RESP 11–18; TEMP 36.1; O2SAT 94–99; BMI 32.7
--- NOTE | ~2024-04-07 | US_ITS ---
78-year-old man with multifocal bilobar liver masses. PROCEDURES: 1. Limited preprocedure ultrasound of the abdomen. Permanent images saved in PACS. 2. Ultrasound-guided biopsy of the right lobe liver mass. 3. Limited postprocedure ultrasound of the abdomen. Permanent images saved in PACS. CLINICIANS: Bruno Leyva PA-C MEDICATIONS: -Versed 1.5 mg, Fentanyl 75 mcg, and lidocaine 1% 10 mL SQ -Antibiotics: None -For additional details, please see nursing flowsheet. COMPLICATIONS: None ESTIMATED BLOOD LOSS: < 5 ml CONTRAST: None SPECIMENS: 5 x 20 g cores were sent to pathology MODERATE SEDATION TIME: 15 min PROCEDURE NOTE: The procedure, risks, benefits, and alternatives were carefully explained to the patient and written informed consent was obtained. The patient was placed supine on the exam table. A timeout was performed. A limited ultrasound of the abdomen was performed to localize the right lobe liver lesion and choose appropriate needle entry and trajectory. The patient was prepped and draped in usual sterile fashion. The skin and deeper soft tissues were anesthetized with lidocaine. Under ultrasound guidance, a 19 gauge trocar needle was advanced to the liver lesion. A 20 gauge biopsy device was inserted through the trocar needle advanced into the liver lesion. A total of 5, 20 gauge cores were performed. The specimens were placed in formalin. A total of 2 Gelfoam torpedoes were then administered through the trocar needle into the biopsy tract and at the level of the liver capsule. The needle was removed. A limited post procedure ultrasound was then performed. Images were saved in PACS. A dry dressing was applied and secured with Tegaderm. There were no immediate complications. The patient was stable after the procedure and was transferred to the post anesthesia care unit. The procedure was done under moderate sedation with a dedicated nurse for monitoring of vital signs. US/US biopsy liver Impression: Ultrasound-guided biopsy of a right lobe liver mass. This procedure was performed by Bruno Leyva PA-C and supervised by Dr. Bernardo. Electronically signed by: Enrique Go MD 04/17/2024 02:[address] [facility]
[2024-04-07 09:42] LABS: Glucose, Whole Blood 139 mg/dL (60-115)
[2024-04-07 09:51] LABS: MANUAL DIFF FLAG NO
[2024-04-07 10:02] LABS: Basophils Absolute Auto 0.1 X10*3/uL (0.0-0.2); Eosinophils Absolute Auto 0.3 X10*3/uL (0.0-0.4); Eosinophils Percent Auto 4.4 % (0-4); Hematocrit 43.9 % (42.0-52.0); Imm Gran Abs Auto 0.06 X10*3/uL (0.00-0.03); Imm Gran Pct Auto 0.8 % (0.0-0.4); Lymphocytes Absolute Auto 1.2 X10*3/uL (1.2-4.9); Lymphocytes Percent Auto 16.3 % (20-40); Mean Corpuscular HGB Conc 34.2 g/dl (31.0-36.0); Mean Corpuscular Hemoglobin 30.3 pg (27.0-33.0); Mean Corpuscular Volume 88.7 fL (80.0-98.0); Mean Platelet Volume 10.1 fL (9.4-12.4); Monocytes Absolute Auto 0.5 X10*3/uL (0.1-1.2); Monocytes Percent Auto 7.1 % (2-11); Neutrophils Absolute Auto 5.2 x10*3/uL (2.0-8.3); Neutrophils Percent Auto 70.4 % (45-73); Platelet Count 195 X10*3/uL (160-400); Red Blood Count 4.95 X10*6/uL (4.60-5.80); Red Cell Distribution Width 12.9 % (11.0-16.0); White Blood Count 7.4 X10*3/uL (4.8-10.8)
--- NOTE | 2024-04-07 10:52 | MHC.SHP ---
Pre-Procedural Eval Section A - 24 Hr Update-Section A only Date of Service: 04/07/24 Section B - Complete if H&P > 30 days Chief Complaint: Liver Bx, Lesions Details of Present Illness: 78 y/o man with multiple liver masses on MRI Relevant Family History (Specify if Yes): No Relevant Social History: None Present Medications: see Short Stay Collaborative assessment Medical History: Significant History History of Previous Operations: Relevant previous surgery/procedure and date(s) Allergies: Allergies Allergy/AdvReac Type Severity Reaction Status Date / Time No Known Allergies Allergy Verified 12/05/23 09:25 Review of Systems Sugical H&P ROS: Negative: Constitution, Cardiovascular, Respiratory and Gastrointestinal Exam Surgical H&P Exam: Normal: Lungs, Normal: Skin and Normal: Neurological and Significant Findings: Heart (bradycardia) and Significant Findings: Abdomen (soft, protuberant) Plan 78 y/o man with multiple liver masses -Image guided liver mass biopsy Time Spent With Patient Time: Total time managing care of this patient today ____ minutes.
--- NOTE | 2024-04-07 11:19 | PC.NURSE ---
Awaiting Printer Technician for lab draw.
--- NOTE | 2024-04-07 11:35 | PC.NURSE ---
Pt resting with eyes closed. Still awaiting Compound Finisher for blood draw. Pt states he is comfortable while we wait.
--- NOTE | 2024-04-07 11:41 | PC.NURSE ---
Labs have been drawn.
--- NOTE | 2024-04-07 11:52 | PC.NURSE ---
Pt's in waiting room. She was notified that our procedure has not started yet due to an unforeseen delay.
[2024-04-07 11:55] LABS: INTERNATIONAL NORM RATIO 1.1 (0.9-1.1); Prothrombin Time 12.5 SEC (10.9-12.4)
[2024-04-07 11:58] LABS: Partial Thromboplastin Time 36.9 SEC (26.0-36.8)
[2024-04-07] MEDS: Midazolam HCl/PF 2 MG/2 ML VIAL 1 MG IVPUSH ×2 (12:00→12:08)
[2024-04-07] MEDS: fentaNYL citrate/PF 100 MCG/2 ML VIAL 50 MCG IVPUSH (12:00)
[2024-04-07] MEDS: fentaNYL citrate/PF 100 MCG/2 ML VIAL 25 MCG IVPUSH (12:08)
[2024-04-07] MEDS: Lidocaine HCl 1 % MPF 5 ML VIAL 10 ML SUBCUT (12:18)
--- NOTE | 2024-04-09 09:40 | PM.EVENT ---
Event Note Date of Service: 04/09/24 Event Note: Contacted by Pathologist regarding liver biopsy performed on 04/07. Preliminary diagnosis is hepatocellular carcinoma with additional stains pending. This was communicated to the ordering clinician/pcp, Tere Lamar APRN ([phone]). Time Spent With Patient Time: Total time managing care of this patient today ____ minutes.
== END 2024-04-07 14:29 | disposition home or self-care (01) ==
PROVIDERS: Physician Assistant Surgical; PCP Nurse Practitioner Primary Care; Visit Provider Nurse Practitioner Primary Care
DX: K76.9 Liver disease, unspecified (principal); I1A.0 Resistant hypertension; N17.9 Acute kidney failure, unspecified; I12.9 Hypertensive chronic kidney disease with stage 1 through stage 4 chronic kidney disease, or unspecified chronic kidney disease; E11.22 Type 2 diabetes mellitus with diabetic chronic kidney disease; N18.2 Chronic kidney disease, stage 2 (mild); E78.5 Hyperlipidemia, unspecified; E11.9 Type 2 diabetes mellitus without complications; Z79.84 Long term (current) use of oral hypoglycemic drugs; Z79.899 Other long term (current) drug therapy
CPT/HCPCS: 36415; 47000; 76942; 82947; 85025; 85610; 85730; 86850; 86900; 86901; 88307; 88313; 88341; 88342; J2003; J2250; J2310; J3010

== ENCOUNTER → 2024-04-07 08:43 | Outpatient (BNV) | payer MEDICARE, SELFPAY | PROVIDERS: PCP Nurse Practitioner Primary Care; Visit Provider Physician Assistant Surgical | DX: K76.9 Liver disease, unspecified (principal) | CPT/HCPCS: 47000; 76942; 99152; 99499 ==

== ENCOUNTER 2024-06-13 13:01 | Outpatient (AMB) | payer MEDICARE, SELFPAY ==
--- NOTE | 2024-06-13 13:02 | MHC.OFFVIS ---
Vital Signs 06/13/24 13:05 Height 5 ft 6 in Weight 199 lb BMI 32.1 Intake Visit Reasons: Follow up Wire Brush Maker Required: No Accompanied by: Self / Same As Patient Allergies No Known Allergies Allergy (Verified 06/13/24 13:04) HPI Comments Details: 78-year-old male presents for follow-up tele visit per history of known fall with mild subarachnoid hemorrhage. Patient is accompanied with his . Patient was conducted via telephone only, as he was unable to utilize [employer] technology today. Since last visit, patient was diagnosed with hepatocellular carcinoma following pulmonary workup for increased cough and respiratory symptoms. He is being followed by [facility] oncology Dr. Olivera, and Dr. Brandon. Patient started y-[address] Issa yesterday, which he states he tolerated very well. The current plan is for patient is to start systemic therapy, atezolizumab/bevacizumab, a few weeks after y-90 is completed. Patient did also have follow-up brain MRI with and without contrast in December of 2023, which showed right frontoparietal junction residual susceptibility artifact from the prior subarachnoid hemorrhage, moderate chronic microangiopathic, generalized cerebral volume loss with somewhat disproportionate prominence of ventricles and sulci, paranasal sinus inflammation. He then had follow-up CT angio head and neck in March of 2024, which did not show any intracranial occlusion, stenosis, aneurysm, or vascular malformation. There again is demonstration of moderate microangiopathic changes, with generalized cerebral volume loss with prominence of the ventricles and sulci spaces. This also did note moderate to advanced multilevel degenerative spondyloarthropathy, with moderate spinal canal stenosis from C3-T1. There was also note of 5.4 cm lesion in the left thyroid lobe. Today, patient denies any dizziness, vision changes, gait changes, headache, cognitive changes. Patient states all things considering, he is feeling very well. When asked if he had had follow-up with PCP regarding the thyroid nodule, patient stated at this time ?I have bigger fish to [place] at this time?. Note, thyroid lesion was seen on follow-up chest CT done at [facility], as part of his HCC diagnostic workup. 11/26/2023 initial HPI: 78-yr-old male w/ PMH HTN, diabetes, and COVID-19 (May 2023) presents for new pt neuro evaluation following a mechanical slip and fall on ice on 06/04/23. Pt did strike his head, has approx 30 seconds of LOC. Was brought to [facility] via ambulance. Head CT showed several foci of mild subarachnoid hemorrhage seen along the falx. Possible small focus of intraventricular hemorrhage in the fourth ventricle. He was monitored at [facility]- remained neurologically intact and discharged home. Pt states he had a headache for just a couple of days, which self-resolved. He denies any residual dizziness, headache, cognitive changes, sleep difficulties. His only current compliant is that he believes he recently pulled his Right upper/thigh groin region- not sure how but was helping a friend do some physical work finding a well. This has been making it harder for him to do his usual 4+ mile walk per day in the last couple of days- though he was able to walk approx 2 miles today (pt shares his phone's activity log). He has been resting, using Ibuprofen prn and applying Ice which has been helpful. 06/04/23, RESULT: CT Head/Brain W/O Contrast CT Head/Brain W/O Contrast, CT Cervical Spine W/O Contrast Hx of Present Illness: patient does not remember events. does remember getting ready to leave house, then being in ambulance. thinks he fell because the back of his head hurts. C-collar by EMS; Reason: Trauma; Clinical Question(s): Hematoma COMPARISON: None. TECHNIQUE: Incremental CT without contrast through the head was formatted in axial and coronal plane. Spiral CT without contrast through the cervical spine was formatted in 3 planes. Automatic tube modulation was used for the cervical spine and iterative dose reconstruction was used for both the head and cervical spine to optimize scan parameters and image quality. CTDIvol Body: 20.55 mGy, DLP Body: 461 mGy*cm. CTDIvol Head: 42.62 mGy, DLP Head: 767 mGy*cm. FINDINGS: Pre Press Operator View Findings, Lines and Tubes: None. CT of HEAD: BRAIN: High density material seen adjacent to the falx at the apex consistent with mild subarachnoid hemorrhage. Possible small focus of hemorrhage also noted in the fourth ventricle area. No white matter lesions. VENTRICLES: Ventricles, sulci, and basilar cisterns are normal. EXTRA-AXIAL SPACES: No subarachnoid hemorrhage. No subdural or epidural collection. SKULL/SOFT TISSUES: No fractures or suspicious bony lesions. The extracranial soft tissues are unremarkable. SINUSES: The paranasal sinuses and mastoid air cells are clear. ORBITS: Visualized orbits and globes are intact. CT of CERVICAL SPINE: CERVICAL SPINE: No fracture or acute malalignment. Normal alignment. No locked or perched facet. Intervertebral discs are normal. OTHER BONES: Normal. CERVICAL SOFT TISSUES:3 cm left thyroid nodule. Follow-up with ultrasound could be considered. LUNG APICES: Clear lung apices. IMPRESSION: Several foci of mild subarachnoid hemorrhage seen along the falx. Possible small focus of intraventricular hemorrhage in the fourth ventricle. No other acute abnormality. Indeterminate left lobe thyroid nodule. Follow-up ultrasound as outpatient could be considered [facility] Medical History (Updated 06/13/24 @ 18:40 by JEAN Perez) First degree AV block HTN (hypertension) Diabetes Family History Father Afib Social History Are you a primary complex care nurse practitioner to a significant other at home: No Do you presently have visiting nurse or other home services: No Alcohol intake: never Patient Tobacco Use Status: Never used Tobacco Second Hand Smoke Exposure: No Physical Exam Vital Signs: BMI result Body Mass Index 32.1 Const General: cooperative and no acute distress Orientation/consciousness: patient oriented x3 Resp Effort & Inspection: normal respiratory effort and able to speak in complete sentences Neuro General: patient oriented x3 Cognition (Neuro): normal cognition Psych Mental Status: mental status grossly normal Attitude: cooperative Telehealth Telehealth Telehealth Platform: Telephone Location of provider rendering services: practice address Location of patient: address on file Patient Identification confirmed using: Name, : Yes Telehealth method: voice only Patient verbally consented to treatment: Yes Patient verbally consented to billing insurance company: Yes Patient informed of any privacy concerns related to visit: Yes Minutes spent on Phone/Video with Pt.: 10 Results Reviewed Results Reviewed: 04/04/2024, CT/CT angio head neck IMPRESSION: 1. No evidence of acute intracranial hemorrhage or edematous territorial infarction. 2. CTA of the head and neck without proximal occlusion or flow-limiting stenosis. No demonstrated intracranial aneurysm or vascular malformation. 3. Moderate underlying microangiopathy. There is a degree of generalized cerebral volume loss with prominence of both the ventricles and sulcal spaces. However, there appears to be mildly disproportionate prominence of the ventricles. This may be due to disproportionate central volume loss; however, correlation with symptoms of potential superimposed normal pressure hydrocephalus is recommended. 4. Moderate to advanced multilevel degenerative spondyloarthropathy of the cervical spine. There appears to be at least moderate spinal canal stenoses from C3-T1. 5. There is a 5.4 cm lesion in the left thyroid lobe. Recommend further characterization with thyroid ultrasound. 01/03/2024,MR/MR head/brain wo/w con IMPRESSION: 1. There is susceptibility artifact along the paramedian aspect of the right frontoparietal junction, most likely reflecting pial hemosiderin staining in the setting of prior subarachnoid hemorrhage. Vascular abnormality in this region is not excluded on the basis of this examination and would be better assessed with CTA 2. Moderate chronic microangiopathy. 3. Generalized cerebral volume loss with disproportionate prominence of the ventricles and sulcal crowding near the vertex, a radiographic finding which can be seen in the setting of communicating/normal pressure hydrocephalus. 4. Paranasal sinus inflammatory disease including complete opacification of the left frontal sinus. Assessment & Plan Assessment & Plan (1) Subarachnoid hemorrhage: Comment: Resolved Code(s): I60.9 - Nontraumatic subarachnoid hemorrhage, unspecified Category: Medical (2) Head injury with loss of consciousness: Comment: d/t mechanical fall (May 2023). Code(s): S06.9X9A - Unspecified intracranial injury with loss of consciousness of unspecified duration, initial encounter Category: Medical Plan Reviewed interval brain MRI and head/neck CTA, results do show susceptibility artifact changes within the right frontoparietal lobe, which are likely secondary to known history of subarachnoid hemorrhage. He does have chronic microangiopathic changes, mildly disproportionate ventriculomegaly. Cervical spine imaging does show multilevel arthritic and spinal canal stenosis. Thyroid nodule was also noted. Patient denies any current symptoms related to history of known subarachnoid hemorrhage. Patient denies symptoms suggestive of NPH. As he has not having any symptoms, and is currently undergoing treatment for HCC, I would not aggressively pursue this at this time. Patient advised to notify Oncology as well as us, if he develops headaches, dizziness, vision changes, any red flag neuro symptoms. We will request PCP monitor thyroid function. We will plan to follow-up with patient in 6 months, or sooner as needed. Coding Level of Care Code Tele Est Pt Level 4 (07612) Diagnoses Subarachnoid hemorrhage I60.9 Head injury with loss of consciousness S06.9X9A Comment 20 minutes in total reviewing patient's chart and outside records.
[2024-06-13 13:05] VITALS: BMI 32.1
--- OUTSIDE RECORDS SUMMARY | 2024-06-13 13:37 | XMS_ITS | Clinical Summary ---
Author Organization [facility]. Address [address] [facility] [place] [address] [place] [address] Phone Care Team Providers Care Technical Services Librarian Name Role Phone Janki Lamar INSURANCE ADMINISTRATOR-C Primary Care Provider + Allergies No known active allergies Medications doxazosin (CARDURA) 4 MG tablet Take 1 tablet by mouth 1 (one) time each day 05/24/2022 Active metFORMIN (GLUCOPHAGE) 1000 MG tablet Take 1,000 mg by mouth 1 (one) time each day 06/19/2022 Active amLODIPine (NORVASC) 10 MG tablet Take 1 tablet (10 mg total) by mouth 1 (one) time each day 10/25/2023 Active spironolactone- hydroCHLOROthia zide (Aldactazide) 25-25 MG per tablet Take 1 tablet by mouth 1 (one) time each day 90 tablet 3 10/25/2023 Active carvedilol (COREG) 25 MG tablet TAKE 1 TABLET BY MOUTH EVERY DAY IN THE MORNING AND IN THE EVENING WITH MEALS 180 tablet 5 11/01/2023 Active olmesartan (Benicar) 20 MG tablet Take 1 tablet (20 mg total) by mouth at bed time 90 tablet 3 03/07/2024 Active Active Problems Problem Noted Date Diagnosed Date Resistant hypertensive disorder 05/06/2024 Stage 3a chronic kidney disease 05/06/2024 Hypertensive chronic kidney disease stage 2 10/06 Chronic kidney disease, stage 2 (mild) Diabetes mellitus without me ntion of complication, type II or unspecified type, not stated as uncontrolled Essential hypertension Encounters Date Type Department Care Team Description 05/06/2024 10:00 AM EST Office Visit [facility] [address] [address] Samantha Mitchell ARNP Stage 3a chronic kidney disease (HCC) (Primary Dx); Resistant hypertensive disorder 05/06/2024 Orders Only [facility] [address] [address] Samantha Mitchell ARNP 03/30/2024 Orders Only [facility] [place] [address] [address] Rahul Arceo MD Other acute kidney failure (HCC); Hypertensive chronic kidney disease stage 2; Chronic kidney disease, stage 2 (mild) from Last 3 Months Family History Medical History Relation Comments Diabetes Father Hypertension Father Stroke Father Relation Status Comments Father Social History Tobacco Use Types Packs/Day Years Used Date Smoking Tobacco: Never Smokeless Tobacco: Never Tobacco Cessation:Counseling Given: Not Answered Alcohol Use Standard Drinks/Week Comments Yes 0 (1 standard drink = 0.6 oz pur e alcohol) Sex and Gender Information Value Date Recorded Sex Assigned at Not on file Legal Sex Male 8:18 AM EST Gender Identity Male 10/18/2022 7:27 AM EDT Sexual Orientation Not on file Last Filed Vital Signs Vital Sign Reading Time Taken Comments Blood Pressure 120/66 05/06/2024 9:45 AM EST Pulse 59 05/06/2024 9:45 AM EST Temperature - - Respiratory Rate - - Oxygen Saturation 97% 05/06/2024 9:45 AM EST Inhaled Oxygen Concentration - - Weight 90.7 kg (200 lb) 05/06/2024 9:45 AM EST Height - - Body Mass Index - - Plan of Treatment Upcoming Encounters Date Type Department Care Team (Late st Contact Info) Description 10/27/2024 1:30 PM EDT Office Visit [facility] [address] [phone] Rahul Arceo MD [address] [address] Health Maintenance Due Date Last Done Comments Pneumococcal Vaccine: 65+ Ye ars (1 of 2 - PCV) 1951 Diabetes: Hemoglobin A1C 10/25/2023 Diabetes: Ophthalmology Exam 10/25/2023 Diabetes: Pedal Pulse Checked 10/25/2023 Diabetes: Sensory Foot Exam 10/25/2023 Diabetes: Visual Foot Exam 10/25/2023 Influenza Vaccine (#1) 2024 Hepatitis B Vaccine Aged Out No longe r eligible based on patient's age to complete this topic Procedures Procedure Name Priority Date/Time Associated Diagnosis Comments PTH, INTACT Routine 05/06/2024 10:43 AM EST MAGNESIUM Routine 05/06/2024 10:43 AM EST URINE ALBUMIN / CREATININE RATIO Routine 05/06/2024 10:43 AM EST PROTEIN / CREATININE RATIO, URINE Routine 05/06/2024 10:43 AM EST HEMATOLOGY COMMENTS Routine 05/06/2024 1 0:43 AM EST CBC Routine 05/06/2024 10:43 AM EST RENAL FUNCTION PANEL Routine 05/06/2024 10:43 AM EST PROTEIN / CREATININE RATIO, URINE Routine 05/06/2024 10:42 AM EST Other acute kidney failure (HCC) Hypertensive chronic kidney disease stage 2 Chronic kidney disease, stage 2 (mild) MAGNESIUM Routine 05/06/2024 10:42 AM EST Other acute kidney failure (HCC) Hypertensive chronic kidney disease stage 2 Chronic kidney disease, stage 2 (mild) RENAL FUNCTION PANEL Routine 05/06/2024 10:42 AM EST Other acute kidney failure (HCC) Hypertensive chronic kidney disease stage 2 Chronic kidney disease, stage 2 (mild) from Last 3 Months Results * Hematology Comments (05/06/2024 10:43 AM EST) Comment: Note: [facility] Comment:Manual differential was performed. 05/06/2024 10:4 3 AM EST 05/06/2024 Samantha Mitchell [facility] LAB BLOOD ORDERABLES Final Result Performing Organization Address [facility] de Phone Number [facility] [address] [place] [address] * Protein, Total, Random Urine w/Creatinine (Protein/Creat Ratio) (05/06/2024 10:43 AM EST) Only the most recent of2 resultswithin the time period is included. Pathologist [facility] Creatinine, Ur 111.8 Not Estab. mg/dL [facility] Protein, Ur 7.8 Not Estab. mg/dL [facility] Urine Protein/Creatin ine Ratio 70 0 - 200 mg/g creat [facility] 05/06/2024 10:4 3 AM EST 05/06/2024 Samantha [facility] LAB URINE ORDERABLES Final Result Performing Organization Address [facility] de Phone Number [facility] [address] [place] [address] * Urine Albumin / Creatinine Ratio (05/06/2024 10:43 AM EST) Pathologist [facility] Urine Microalbumin 4.4 Not Estab. ug/mL [facility] Microalbumin/Crea tinine Ratio 4 0 - 29 mg/g creat [facility] Comment: ? Normal: ?0 - ??29 ? Moderately increased: 30 - 300 ? Severely increased: ? >300 05/06/2024 10:4 3 AM EST 05/06/2024 Samantha [facility] LAB URINE ORDERABLES Final Result [facility] [address] [place] [address] * CBC (05/06/2024 10:43 AM EST) WBC 7.1 3.4 - 10.8 x10E3/uL [facility] RBC 4.82 4.14 - 5.80 x10E6/uL [facility] Hemoglobin 14.6 13.0 - 17.7 g/dL [facility] Hematocrit 43.9 37.5 - 51.0 % [facility] MCV 91 79 - 97 fL [facility] MCH 30.3 26.6 - 33.0 pg [facility] MCHC 33.3 31.5 - 35.7 g/dL [facility] RDW 12.2 11.6 - 15.4 % [facility] Platelets CANCELED x10E3/uL [facility] Comment: Unable to perform an accurate platelet count due to aggregation of the platelets. Result canceled by the ancillary. 05/06/2024 10:4 3 AM EST 05/06/2024 Samantha Stephen [facility] LAB BLOOD ORDERABLES Edited Result - Final [facility] [address] [place] [address] * PTH, Intact (05/06/2024 10:43 AM EST) Pathologist [facility] PTH 33 15 - 65 pg/mL [facility] 05/06/2024 10:4 3 AM EST 05/06/2024 [facility] LAB BLOOD ORDERABLES Final Result Performing Organization Address City/[facility]/ZIP Co de Phone Number [facility] [address] [place] [address] * Magnesium (05/06/2024 10:43 AM EST) Only the most recent of2 resultswithin the time period is included. Pathologist [facility] Magnesium 1.8 1.6 - 2.3 mg/dL [facility] 05/06/2024 10:4 3 AM EST 05/06/2024 [facility] LAB BLOOD ORDERABLES Final Result Performing Organization Address [facility]/ZIP Co de Phone Number [facility] [address] [place] [address] * (ABNORMAL) Renal Function Panel (05/06/2024 10:43 AM EST) Only the most recent of2 resultswithin the time period is included. Pathologist [facility] Glucose 140(H) 70 - 99 mg/dL [facility] BUN 25 8 - 27 mg/dL [facility] Creatinine 1.42(H) 0.76 - 1.27 mg/dL [facility] eGFR CKD-EPI CR 2020 51(L) >59 mL/min/1.7 3 [facility] BUN/Creatinine Ratio 18 10 - 24 [facility] Sodium 141 134 - 144 mmol/L [facility] Potassium 4.5 3.5 - 5.2 mmol/L [facility] Chloride 103 96 - 106 mmol/L [facility] Bicarbonate (CO2) 21 20 - 29 mmol/L [facility] Calcium 9.7 8.6 - 10.2 mg/dL [facility] Albumin 4.3 3.8 - 4.8 g/dL [facility] Phosphorus 3.1 2.8 - 4.1 mg/dL [facility] 05/06/2024 10:4 3 AM EST 05/06/2024 Samantha [facility] LAB BLOOD ORDERABLES Final Result [facility] [address] [place] [address] from Last 3 Months Insurance MEDICARE [facility] MEDICARE [facility] Care Teams Technical Services Librarian Relationship Specialty Start Date End Date Janki Lamar NP-C [address], [address] [place] [address] PCP - General Nurse Practitioner 05/02/22
== END 2024-06-13 14:23 | disposition home or self-care (01) ==
PROVIDERS: PCP Nurse Practitioner Primary Care; Visit Provider Nurse Practitioner Family
DX: S06.6X9D Traumatic subarachnoid hemorrhage with loss of consciousness of unspecified duration, subsequent encounter (principal)
CPT/HCPCS: 99214